=== PATIENT | male | born 1985 | race Caucasian/White ===

== ENCOUNTER 2024-02-13 09:59 | Emergency (ER) | payer SELFPAY ==
[2024-02-13 10:06] VITALS: BP 122/77; PULSE 70; RESP 15; TEMP 38.1; O2SAT 98
--- NOTE | 2024-02-13 10:15 | DI.CT_ITS ---
Exam(s) CT ABDOMEN PELVIS W EXAM: CT ABDOMEN PELVIS W CLINICAL HISTORY: Abd pain. TECHNIQUE: Imaging Protocol: Axial computed tomography images with coronal and sagittal reformatted images were created and reviewed CONTRAST MATERIAL: Intravenous: Omnipaque 350 Contrast volume:100 ml Oral: no COMPARISON: No exams were available for comparison FINDINGS: ABDOMEN and PELVIS: Lung Bases: No acute findings. Liver: Normal density. No suspicious mass. Gallbladder and biliary tract: No radiodense calculus. No biliary dilation. Pancreas: Normal density. No abnormal calcifications or inflammatory process. No evidence of mass. Spleen: Normal. Kidneys: Normal size, contour and axis. No radiodense stones. No obstructive uropathy. No suspicious masses seen. Adrenal glands: No masses seen. Vasculature: Abdominal aorta non-dilated. Soft tissues: Unremarkable. Bladder: No gross wall thickening. No calculi.No focal mass. Bowel: No obstruction. No bowel wall thickening. Appendix normal. Diverticulosis descending and si gmoid colon. No evidence of diverticulitis. Normal quantity of stool. Peritoneal cavity: No ascites. No focal collection. No mesenteric inflammatory response. Bones: Unremarkable for age. Reproductive organs: Unremarkable. Lymph nodes: No pathologically enlarged lymph nodes. IMPRESSION:: No acute abnormality in the abdomen or pelvis. RADIATION DOSE DELIVERED: Total DLP DATA REPOSITORY: All CT scans at this facility are submitted to the National Radiology Data Registry (NRDR) Dose Index Registry (DIR) with the [employer] (A[employer]). RADIATION OPTIMIZATION: All CT scans at this facility use at least one of these dose optimization te chniques: automated exposure control; mA and/or kV adjustment per patient size (includes targeted exa ms where dose is matched to clinical indication); or iterative reconstruction.
[2024-02-13 10:23] VITALS: BP 122/77; PULSE 70; RESP 15; TEMP 38.1; O2SAT 98
--- NOTE | 2024-02-13 10:28 | ED.GENADUL_ITS ---
Discharge Plan Disposition Patient Disposition: Home Condition: Stable Discharge Details Clinical Impression: Abdominal pain, Groin pain Primary Care Provider: Unknown,Unknown ED Provider: Micaela Ruvalcaba Home Meds and New Rx's Prescriptions: No Action fluticasone propion-salmeterol [Advair Diskus] 250-50 mcg/dose blister with device 1 inh inhalation BID albuterol sulfate [Proventil HFA] 90 mcg/actuation HFA aerosol inhaler 1 inh inhalation Q6H PRN Discharge Instructions Instructions: Abdominal Pain, Adult ED Additional Instructions: You were seen in the emergency department today for evaluation of lower abdominal and groin pain. In our department you have a full physical examination performed, received medications for management of pain and fever, and had laboratory studies and a CT scan that were reassuring and did not show the exact cause of your symptoms. It is possible that you experienced a muscular strain, we should also consider whether or not you are experiencing a viral infection due to your low-grade fever. Please continue to maintain good hydration and nutrition, utilize Tylenol and ibuprofen as needed for symptomatic management of pain and fever, and you should follow-up with your primary care provider when you return home to [place], or return to the emergency department sooner if you have any change or worsening of your symptoms. Thank you for allowing us to be part of your care. HPI General Date/Time Provider Initiated Documentation: 02/13/24 10:02 . Limitations to Documentation: no limitations . Information obtained by: patient and old records reviewed . HPI Narrative: MDM: This is a 39-year-old male patient with a history of IBS, diverticulosis, nicotine use presenting for evaluation of lower abdominal/groin pain. My differential includes but is not limited to urinary tract infection, pyelonephritis, nephrolithiasis, certainly considered inguinal hernia, bowel obstruction, appendicitis, diverticulitis. I see no overlying skin changes to suggest herpes zoster, and my testicular examination is reassuring against testicular torsion, orchitis, epididymitis. Symptoms less consistent with urethritis/prostatitis. Will obtain laboratory studies to include CBC, CMP, lipase, urinalysis, and given the marked tenderness with my physical examination we will proceed with CT abdomen pelvis with contrast. I provided the patient with a dose of Tylenol given his temperature elevation to 38 1, and will provide him with intravenous Toradol for initial management of pain, though certainly can escalate if this is ineffective in managing his symptoms. ED Course: I independently interpreted the laboratory studies, which show no significant leukocytosis, anemia, or thrombocytopenia. The chemistry panel is without evidence of electrolyte abnormality, kidney dysfunction, or liver injury. Urinalysis noninfectious and with no hematuria. I independently interpreted the patient's CT abdomen pelvis, which does not show any abnormalities to account for the patient's groin pain. On reassessment the patient reports that he has had improvement in this pain with the Tylenol and ibuprofen, and given the reproduction with movement he is most concerned for muscle strain, which certainly could be contributing. His fever resolved though I do not have an adequate explanation for his low-grade fever at this time, certainly could be developing a viral infection given his recent travel and reported chronic cough. The patient will follow-up with his primary care provider when he returns home to [place], and at this time, the patient has had a full medical evaluation and is safe for discharge to home. They are hemodynamically stable, ambulatory, and tolerating PO. They are understanding of the follow-up plan and return precautions. They left our facility without incident. Micaela Ruvalcaba MD HPI: This is a 39-year-old male patient with a history of nicotine and marijuana use, IBS, and a history of diverticulosis, presenting for evaluation of lower abdomen/groin pain. The patient reports that he woke up 3 days ago with this pain in his central lower abdomen, initially noted that it radiated down to his bilateral groin, thought that perhaps he had pulled a muscle, and trialed ibuprofen as well as rest without improvement in his symptoms. He has noted a gradual worsening of his pain over the last 3 days, states that additional propagating factors include supine positioning, excessive movement. He has been able to eat and drink normally for him, passed normal stool this morning, and has not had dysuria or hematuria. The patient reports that he has a chronic cough due to his nicotine and marijuana use, has not noted any changes. He is not experiencing headaches, shortness of breath, chest pain. He has not had nausea or vomiting, and has been eating and drinking typically for him. The patient has no history of abdominal surgeries, has had numerous colonoscopies due to a family history of early colon cancer. The patient reports that he is and sexually active only with his , has not had sexual intercourse in 2 months as he is traveling for work. Has no concern for penile discharge, STI. Exam: Gen: Awake and alert, in no apparent distress HEENT: Non-icteric sclera Neck: Supple Lungs: No apparent respiratory distress, normal respiratory effort. CV: Appears well perfused, Strong distal pulses Abdomen: Non-distended, soft, tender with guarding to the suprapubic region and right greater than left lower quadrants, no palpable hernias with Valsalva in the supine position, no rebound or rigidity : Normal external male genitalia, bilateral testicles are not tender to palpation, cremasteric reflex intact and symmetrical bilaterally. MSK: Moves 4 extremities without apparent limitation in ROM Skin: Visualized skin without rashes, cyanosis. Neuro: Normal Gait, no obvious focal deficits or facial asymmetry. Speaks in full, clear sentences. Psych: Appropriate for situation. Related Data Home Medications ?Medication ?Instructions ?Recorded ?Confirmed albuterol sulfate 90 mcg/actuation 1 inh inhalation Q6H PRN 02/13/24 02/13/24 aerosol inhaler (Proventil HFA) fluticasone 250 mcg-salmeterol 50 1 inh inhalation BID 02/13/24 02/13/24 mcg/dose blistr powdr for inhalation (Advair Diskus) Allergies Allergy/AdvReac Type Severity Reaction Status Date / Time No Known Allergies Allergy Unverified 02/13/24 10:22 General Stated Complaint: Abd Prob RAGINI: 3 Course Vital Signs Vital signs: Vital Signs Temperature 38.1 C H 02/13/24 10:06 Pulse 70 02/13/24 10:06 Respiratory Rate 15 02/13/24 10:06 Blood Pressure 122/77 02/13/24 10:06 Pulse Oximetry 98 02/13/24 10:06 Temperature 38.1 C H 02/13/24 10:23 Temperature Source Tympanic 02/13/24 10:23 Pulse 70 02/13/24 10:23 Respiratory Rate 15 02/13/24 10:23 Respiratory Effort Normal, Non-Labored 02/13/24 10:23 Blood Pressure 122/77 02/13/24 10:23 Blood Pressure Position Sitting 02/13/24 10:23 Pulse Oximetry 98 02/13/24 10:23 Oxygen Delivery Method Room Air 02/13/24 10:23 Oxygen Flow Rate 0 02/13/24 10:23 Pain Level 8 02/13/24 10:23 Medical Decision Making Quality:SDOH Health Related Social Needs: No Data to Display PFSH All Active Problems (Updated 02/13/24 @ 11:47 by Micaela Ruvalcaba MD) Groin pain (Acute) Abdominal pain (Acute) Social History Smoking/Tobacco Use Status: Current every day Tobacco Type: cigarettes Smoking risk assessment performed?: Yes Alcohol Intake: never Drug use: Daily Substance use type: marijuana Housing: house Do you feel safe at home: Yes Do you feel safe in your relationship?: Yes
[2024-02-13] MEDS: Acetaminophen 500 MG TAB 1000 MG PO (10:44)
[2024-02-13] MEDS: Ketorolac 15 MG/ML VIAL IVP (10:44)
[2024-02-13 10:49] LABS: Abs Immature Grans 0.04 10^3/uL (0.0-0.06); Absolute Basophil Count 0.07 10^3/uL (0.0-0.2); Absolute Eosinophil Count 0.29 10^3/uL (0.0-0.7); Absolute Monocyte Count 0.88 10^3/uL (0.1-0.8); Absolute Neutrophil Count 7.04 10^3/uL (1.2-6.7); Basophils % 0.7 %; Eosinophils % 2.8 %; HCT 45.9 % (40.0-50.0); HGB 16.1 g/dL (13.5-17.5); Immature Grans % 0.4 %; Lymphocytes % 20.9 %; MCH 32.1 pg (27.0-33.0); MCHC 35.1 % (32.0-36.0); MCV 91 fL (80-95); MPV 9.3 fL (8.0-11.0); Monocytes % 8.4 %; Neutrophils % 66.8 %; Platelet Count 258 10^3/uL (130-400); RBC 5.02 10^6/uL (4.36-5.78); RDW 11.9 % (11.8-14.1); RDW-SD 39.9 fL; WBC 10.52 10^3/uL (4.4-10.8)
[2024-02-13] MEDS: Omnipaque 350 MG/ML 100 ML BTL IJ (10:56)
[2024-02-13] MEDS: Normal Saline - Diluent 50 ML VIAL IJ (10:57)
[2024-02-13 11:11] LABS: ALT 19 U/L (16-63); AST 12 U/L (15-37); Albumin 3.9 g/dL (3.4-5.0); Alkaline Phosphatase 87 U/L (46-116); Anion Gap 7.8 mmol/L (3-11); BUN 12 mg/dL (7-18); Bilirubin, Total 0.97 mg/dL (0.2-1.0); CO2 28.2 mmol/L (21.0-32.0); CREATININE 1.3 mg/dL (0.70-1.30); Calcium 9.4 mg/dL (8.5-10.1); Chloride 102 mmol/L (98-107); Estimated GFR 71.67 (mL/min/1.73m2); Glucose 96 mg/dL (74-106); Lipase 29 U/L (16-77); Magnesium 2.1 mg/dL (1.8-2.4); Potassium 4.3 mmol/L (3.5-5.1); Sodium 138 mmol/L (136-145)
--- NOTE | 2024-02-13 11:15 | DI.VRAD_ITS ---
PROCEDURE INFORMATION: Exam: CT Abdomen And Pelvis With Contrast Exam date and time: 02/13/2024 10:56 AM Age: 39 years old Clinical indication: Abdominal pain TECHNIQUE: Imaging protocol: Computed tomography of the abdomen and pelvis with contrast. Contrast material: OMNIPAQUE; Contrast volume: 100 ml; Contrast route: INTRAVENOUS (IV); COMPARISON: No relevant prior studies available. FINDINGS: Liver: Few small cysts in the right lobe of the liver. The liver is normal in size and contour. Gallbladder and biliary ducts: Unremarkable. Pancreas: The pancreas appears normal. Spleen: The spleen appears normal. Adrenal glands: The adrenals appear normal. Kidneys and ureters: Simple appearing fluid density cyst in the medial interpolar region of the right kidney. The kidneys enhance symmetrically and empty into non-dilated ureters. Stomach and bowel: The stomach appears unremarkable. The small bowel loops are not abnormally dilated. The large bowel loops are not abnormally dilated. Colonic diverticulosis without signs of acute diverticulitis. Appendix: The appendix appears normal. Intraperitoneal space: No ascites or significant fluid collection. Vasculature: The aorta is nonaneurysmal. The IVC appears normal. Lymph nodes: There are no enlarged lymph nodes. Urinary bladder: The bladder is distended and demonstrates no focal contour abnormality. Reproductive: Unremarkable as visualized. Bones/joints: Unremarkable. Soft tissues: Unremarkable. IMPRESSION: No acute abdominopelvic abnormality identified. Dictated and Authenticated by: Kun Garcia MD. Ordering:MUSA Malagon MD
[2024-02-13 11:17] LABS: Bilirubin Negative (Negative); Blood Negative (Negative); Clarity Clear (Clear); Glucose Negative (Negative); Ketones Negative (Negative); Leukocyte Esterase Negative (Negative); Nitrite Negative (Negative); Specific Gravity 1.015 (1.005-1.025); Urobilinogen 0.2 mg/dL (Up to 0.2)
== END 2024-02-13 12:03 | disposition home or self-care (01) ==
LOC: ER 12:00
PROVIDERS: Emergency Provider Emergency Medicine
DX: R10.9 Unspecified abdominal pain (principal)
CPT/HCPCS: 36415; 80053; 83690; 96374; 99285; 74177; 81003; 83735; 85025; 99284; J1885; J3490